=== PATIENT | male | born 1985 | race Caucasian/White ===

== ENCOUNTER 2022-09-22 10:19 | Emergency (ER) | payer BC, SELFPAY ==
[2022-09-22 10:23] VITALS: BP 133/72; PULSE 78; RESP 18; TEMP 36.5; O2SAT 100; BMI 27.4
--- NOTE | 2022-09-22 11:03 | ED_ITS ---
HPI - General Adult General Date Seen: 09/22/22 Chief complaint: Extremity Pain/Injury, Upper Stated complaint: RT arm always numb, LT arm when wakes up Time Seen by Provider: 09/22/22 10:26 Source: patient Mode of arrival: ambulatory Limitations: no limitations History of Present Illness HPI narrative: Patient is a 37-year-old male who presents for evaluation of numbness in his right hand. He has noted this for about 3 weeks and says it is constant although it is worse when he wakes up in the morning, and get better when he uses his medical marijuana or when he is exercising such as when he does a lot of pushups. He notices paresthesias in the 4th and 5th digits primarily, a little bit on the 3rd finger as well. He says that sometimes he notices some symptoms in the same distribution on the left-hand but primarily symptoms are on the right. 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 He has not had any true numbness and has not had any weakness in the hand. He does not have any pain. Does not have any symptoms in the arm. He does smoke cigarettes, medical marijuana for chronic back pain. Related Data Home Medications Medication Instructions Recorded Confirmed No Known Home Medications 09/22/22 09/22/22 Allergies Allergy/AdvReac Type Severity Reaction Status Date / Time No Known Drug Allergies Allergy Verified 09/22/22 10:26 Review of Systems Status of ROS: Reports: 6 or more systems reviewed and unremarkable except as noted in History and below Exam Narrative: Exam Narrative: Vital signs as noted above. In general, an alert, well-appearing patient. Head: Normocephalic, atraumatic. Eyes: Pupils are equal reactive. Extraocular movements are full. Conjunctivae are normal. ENT: Mucous membranes are moist. Throat is normal. Neck: Supple without lymphadenopathy. Heart: Regular rate and rhythm. No murmur or rub. Lungs: Clear bilaterally. No increased work of breathing, crackles or wheezes. Extremities: Well perfused. No edema. Pulses intact bilaterally. Capillary refill is brisk. No swelling or deformity. No tenderness at the elbow on the right, full range of motion. Full range of motion at the wrist. Neurologic: Patient is alert and oriented to person and place. Speech is fluent. Face is symmetric. Moves all extremities equally. Strength is 5 of 5 in bilateral upper extremities. Sensation is full bilaterally, but he does have paresthesias noted in the right 4th and 5th digits as well as the ulnar aspect of the 3rd finger. Left hand is normal at this time. Affect: Normal. Skin: Warm and dry. Well perfused. Const: Vital Signs, click to edit/add: Vital Signs - 24 hr 09/22/22 10:23 Temperature 97.7 F Pulse Rate [Right Pulse Oximeter] 78 Respiratory Rate 18 Blood Pressure [Ri ght Upper Arm] 133/72 Pulse Oximetry 100 Oxygen Delivery Me thod Room Air Documenting provider has reviewed patient's vital signs: yes Course Course Hospital Course: Overall, symptoms are most consistent with an ulnar neuropathy. I am less suspicious of a cervical radiculopathy given the lack of pain or symptoms in the arm. He has a normal neurologic exam with the exception of subjective paresthesias. Etiology of the neuropathy is unclear at this time but probably related to inflammation or compression of the nerve at the elbow given the distribution of his paresthesias. I have suggested that we put him on a little bit of prednisone to see if that will help him symptomatically, but have suggested that he will likely need Neurology follow-up for further evaluation and recommendations on therapy. If symptoms are acutely worse or he develops significant weakness, would recommend return for re-evaluation. Given the very focal nature of his symptoms I do not think this represents a central neurologic event. Vital Signs Vital signs: Initial Vital Signs Temperature 97.7 F 09/22/22 10:23 Temperature Source Temporal Artery Scan 09/22/22 10:23 Pulse Rate 78 09/22/22 10:23 Respiratory Rate 18 09/22/22 10:23 Blood Pressure 133/72 09/22/22 10:23 Blood Pressure Mean 92 09/22/22 10:23 Blood Pressure Position Sitting 09/22/22 10:23 Pulse Oximetry 100 09/22/22 10:23 Oxygen Delivery Method Room Air 09/22/22 10:23 Vital Signs Temperature 97.7 F 09/22/22 10:23 Pulse Rate 78 09/22/22 10:23 Respiratory Rate 18 09/22/22 10:23 Blood Pressure 133/72 09/22/22 10:23 Pulse Oximetry 100 09/22/22 10:23 Oxygen Delivery Method Room Air 09/22/22 10:23 Temperature 97.7 F 09/22/22 10:23 Pulse Rate 78 09/22/22 10:23 Respiratory Rate 18 09/22/22 10:23 Blood Pressure 133/72 09/22/22 10:23 Pulse Oximetry 100 09/22/22 10:23 Oxygen Delivery Method Room Air 09/22/22 10:23 Discharge Plan Discharge Clinical Impression: Ulnar nerve neuropathy Patient Disposition: Home, Self-Care Condition: Stable Instructions: Paresthesia (ED) Additional Instructions: Medication as prescribed. Neurology follow-up, please to call to schedule. [phone] If you develop significantly worsening symptoms such as weakness or severe pain, return to the emergency department for re-evaluation. Take prednisone as follows: 3 tablets daily for 3 days, then 2 tablets daily for 3 days, then 1 tablet daily for 3 days. Prescriptions: No Action No Known Home Medications Stand Alone Forms: [employer] Info Instructions
== END 2022-09-22 11:19 | disposition home or self-care (01) ==
LOC: ED 11:19
PROVIDERS: Emergency Provider Emergency Medicine
DX: G56.20 Lesion of ulnar nerve, unspecified upper limb (principal)
CPT/HCPCS: 99283; 99284